=== PATIENT | female | born 1975 | race American Indian/Alaskan Native ===

== ENCOUNTER 2018-10-01 08:42 | Outpatient (CLI) | payer BC ==
[2018-10-01] MEDS ORDERED: Iopamidol 370 76% 100 ML VIAL ONE (09:00)
--- NOTE | 2018-10-01 11:45 | CT ---
ABDOMEN CT WITH CONTRAST PELVIC CT WITH CONTRAST: Date: 10/01/18 HISTORY: Left upper abdominal pain. Discomfort. Symptoms x1 month. COMPARISON: None. TECHNIQUE: CT abdomen and pelvis performed with contrast. Both enteric and IV contrast administered. FINDINGS: ABDOMEN CT: Lung bases are clear. Normal heart size. No significant pericardial fluid. The descending thoracic ao rta and abdominal aorta have a normal caliber. No periaortic fat stranding. Portal vein is patent. Unremarkable gallbladder. Liver, spleen, pancreas, and adrenal glands are unremarkable. There is rotation of the kidneys. Though the lower poles of both kidneys do approximate, there is no physical connection to suggest a horseshoe kidney. There is symmetric enhancement of the kidneys. No evidence of obstructive uropathy. No mesenteric mass, lymphadenopathy, free air, or free fluid. Gastric mucosa, duodenum, and multiple normal caliber small bowel loops are noted. Ileocecal junction is normal. 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 Appendix is n ot appreciated. Scattered fecal material in a nondistended, nondilated colon. CT PELVIS: Note is made of an intrauterine device. Right adnexa is unremarkable. There is a hypodensity in the l eft adnexa measuring 1.7 cm compatible with a dominant follicle. Trace amount of free fluid in the pe lvis. No mass, lymphadenopathy, or free air. Unremarkable urinary bladder. No lytic or blastic lesions in the osseous structures. IMPRESSION: No acute abnormality within the abdomen or pelvis. POS: [facility]
== END 2018-10-01 08:43 | disposition home or self-care (01) ==
LOC: SCSCT 08:42
PROVIDERS: ATTEND Family Medicine
DX: R10.9 Unspecified abdominal pain (principal)
CPT/HCPCS: 74177

== ENCOUNTER 2019-01-28 15:59 | Outpatient (CLI) | payer BC ==
--- NOTE | 2019-01-28 17:20 | MRI ---
MRI RIGHT KNEE WITHOUT CONTRAST: 01/28/19 HISTORY: Injured knee one month ago. Pain. M23.91 - internal derangement. COMPARISON: Radiographs from 12/26/18. FINDINGS: MEDIAL MENISCUS: Intact. LATERAL MENISCUS: A bucket handle type tear of the posterior horn/body junction and body of the lateral meniscus with t issue flipped anteriorly adjacent to the anterior horn. Loss of volume of the posterior horn and body . There is some mild fluid around the lateral meniscotibial and lateral meniscofemoral ligaments. The MCL has abnormal fluid on the superficial and deep margins indicating grade I sprain. The lateral collateral ligaments is wavy with partial tear mid portion. The biceps tendon is intact. The arcuate ligament is partially torn as well as the popliteal fibular ligament. EXTENSOR MECHANISM: Quadriceps tendon, patella and patellar tendon are intact. There is a large joint effusion. CARTILAGE: Patellofemoral compartment: Intact. Medial compartment: Intact. Lateral compartment: Intact. BONES: No fracture. No malalignment. No contusion. MUSCLES: Straining of the popliteus, grade I strain. IMPRESSION: 1. Bucket handle type tear of mainly the body of the lateral meniscus involving some of the post erior horn with tissue flipped anteriorly just posterior to the anterior horn of the lateral meniscus . 2. Grade II tear of the lateral collateral ligament, popliteal fibular ligament and arcuate liga ment. Biceps tendon is intact. 3. Intact medial meniscus and ACL. 4. Grade II partial tear of the MCL. POS: [facility]
== END 2019-01-28 16:00 | disposition home or self-care (01) ==
LOC: TBSIIMAG 15:59
PROVIDERS: ATTEND Orthopaedic Surgery
DX: M23.91 Unspecified internal derangement of right knee (principal); S83.281A Other tear of lateral meniscus, current injury, right knee, initial encounter; S83.421A Sprain of lateral collateral ligament of right knee, initial encounter; S83.411A Sprain of medial collateral ligament of right knee, initial encounter

== ENCOUNTER 2019-02-11 00:05 | Outpatient (CLI) | payer BC ==
[2019-02-11 10:28] LABS: Hemoglobin 13.1 g/dL (12.0-16.0); Mean Corpuscular HGB CONC 32.8 g/dL (32.0-36.0); Mean Corpuscular Hemoglobin 29.7 pg (27.0-31.0); Mean Corpuscular Volume 90.5 fL (78.0-98.0); Mean Platelet Volume 8.7 fL (7.4-10.4); Platelet Count 212 thou/uL (130-400); RBC Distribution Width 12.4 % (11.5-14.5); Red Blood Cell (RBC) Count 4.42 mill/uL (4.20-5.40); White Blood Cell (WBC) Count 5.7 thou/uL (4.8-10.8)
[2019-02-11 10:46] LABS: BHCG - Serum Negative (NEGATIVE); Pregs Control Background? CLEAR/WHITE (CLR/WHITE); Pregs Control Bar Appear? YES (CONTROL BAR)
== END 2019-02-11 00:06 | disposition home or self-care (01) ==
LOC: LABBT 00:05
PROVIDERS: ATTEND Orthopaedic Surgery
DX: Z01.812 Encounter for preprocedural laboratory examination (principal); S83.281A Other tear of lateral meniscus, current injury, right knee, initial encounter
CPT/HCPCS: 84703; 85027

== ENCOUNTER 2019-02-18 06:58 | Day surgery (SDC) | payer BC ==
[2019-02-18] MEDS ORDERED: Bupivacaine/Epinephrine 0.25% 30 ML VIAL ONE (09:38)
[2019-02-18] MEDS ORDERED: Lidocaine 1% (PF) 30 ML VIAL ONE (09:38)
[2019-02-18] MEDS ORDERED: Fentanyl 100 MCG/2 ML VIAL ONE ×2 (10:54→11:14)
[2019-02-18] MEDS ORDERED: HYDROcodone/Acetaminophen 5/325 mg Tablet ONE (12:07)
[2019-02-18] MEDS ORDERED: traMADol HCl 50 MG TAB ONE (12:14)
[2019-02-18] MEDS ORDERED: Ketorolac Tromethamine 30 MG/ML VIAL ONE (13:30)
[2019-02-18] MEDS ORDERED: Dexamethasone 20 MG/5 ML VIAL ONE (13:30)
[2019-02-18] MEDS ORDERED: Ondansetron PF 4 MG/2 ML Vial ONE (13:30)
[2019-02-18] MEDS ORDERED: PROPOFOL 200 MG/20 ML VIAL ONE (13:30)
--- NOTE | 2019-02-19 09:54 | OP ---
DATE OF PROCEDURE: 02/18/2019 PREOPERATIVE DIAGNOSIS: Right bucket-handle lateral meniscus tear. POSTOPERATIVE DIAGNOSES: 1. 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 2. Grade 2 chondral injury, stellate fashion, medial femoral condyle weightbearing surface. LAND APPRAISER: None. ANESTHESIA: The patient received LMA with 25 mL of Marcaine with epi preprocedure and 25 mL of lidocaine plain postprocedure. IMPLANTS: None. TOURNIQUET TIME: 18 minutes. ANTIBIOTICS: Ancef 2 g. COMPLICATIONS: None. HISTORY OF PRESENT ILLNESS: Ms. Bergeron is a pleasant female, who presents after an injury to her knee, which occurred while working out in early December. The patient then failed conservative measures and continued to have pain despite intervention. The patient had MRI that showed a bucket-handle type tear of lateral meniscus. There was LCL and MCL sprain and was intact. I discussed with the patient risks and benefits of an arthroscopic evaluation of her right knee and repair of lateral meniscus and indicated procedures. She understood the risks and benefits of surgery, pain, scar, bleeding, infection, damage to vital structures, decreased range of motion or strength, arthritis, damage to the cartilage, loss of life or limb, blood clot. She understood the risks and benefits and elected to proceed. DESCRIPTION OF PROCEDURE: Time-out was performed designating the patient's right lower extremity as the operative site based on site, consents, and marking. After time-out, the patient's right lower extremity was prepped and draped in sterile fashion. Tourniquet was brought up. I injected 25 mL Marcaine intra-articularly. I then placed a lateral working portal, excised the fat pad. Reviewed the knee intra-articularly, saw ACL and PCL, looked at the patellofemoral joint, looked in the gutters, looked up in the pouch, saw nothing removed. Medially saw that the patient did not have a medial meniscus tear, but she did have a stellate injury that was grade 2 changes to her medial femoral condyle with small flaps, which were just gently removed only. I did not debride on the cartilage and just removed with fewer wings of the flaps. I then moved laterally and visualized laterally the joint and looked to be a discoid meniscus with intrasubstance tear. I used a biter to clean out and create a space in the tear and saucerize the patient's lateral meniscus. After I performed this, I switched my portal from lateral to medial and looked again for position . There was no undersurface tear or any buckle-handle component. It was stable throughout and looked at the meniscus. I debrided again to ensure there was complete stable remnant and complete with bilateral meniscus debridement. I finished my scope, washed, closed medial portal, put injection of lidocaine in the lateral portal for pain postop, closed, and let the tourniquet down after 18 minutes. The patient will be weightbearing as tolerated. She will be followed up in about 10 to 14 days. The patient's outlook is guarded. Job ID: [id number]
== END 2019-02-18 13:30 | disposition home or self-care (01) ==
LOC: SDC 06:58
PROVIDERS: ATTEND Orthopaedic Surgery
PROC: 0SBC4ZZ Excision of Right Knee Joint, Percutaneous Endoscopic Approach (ICD-10-PCS; principal; 2019-02-18)
DX: S83.281A Other tear of lateral meniscus, current injury, right knee, initial encounter (principal); S83.421A Sprain of lateral collateral ligament of right knee, initial encounter; S83.411A Sprain of medial collateral ligament of right knee, initial encounter; S89.81XA Other specified injuries of right lower leg, initial encounter; Z91.040 Latex allergy status; X58.XXXA Exposure to other specified factors, initial encounter
CPT/HCPCS: J0131; J0690; J1100; J1885; J2001; J2405; J2704; J3010